=== PATIENT | male | born 1970 | race Caucasian/White ===

== ENCOUNTER 2017-02-19 07:32 | Observation (INO) ==
--- NOTE | 2017-02-19 07:55 | Emergency Department Note ---
Disposition Clinical Impression: Cholecystitis Disposition: Admitted As Inpatient Condition: Fair Time of Disposition: 11:14 Abdominal Pain HPI - General Chief Complaint: ED Abdominal Pain Stated Complaint: "Gall Stones" Time Seen by Provider: 02/19/17 07:41 Source: patient Mode of arrival: ambulatory Limitations: no limitations Nursing Notes Reviewed: Yes Vital Signs Reviewed: Yes - History of Present Illness HPI Narrative: Nontoxic-appearing 47-year-old male is brought to the emergency department for further evaluation of right upper quadrant pain. The patient was sent to this facility from [facility] emergency department. Here, he underwent laboratory testing as well as a CT of the abdomen and pelvis without contrast. CT shows cholelithiasis with pericholecystic inflammation. The impression of this CT result is cholelithiasis and acute cholecystitis. According to [facility] emergency departments records, this patient's case was discussed with Dr. Osorio, general surgeon. Dr. Osorio requested that the patient be transferred here for an ultrasound of the gallbladder, with disposition to follow. The patient states that his abdominal pain began approximately 1-1/2 days ago and gradually worsened since. He complains of being nauseated but denies any vomiting. He denies any fever, chills, constipation, or diarrhea. He denies any urinary symptoms or bloody stools. He denies any recent foreign travel or known sick contacts. The patient was given IV Zofran and morphine prior to discharge to this emergency Department. At the time of my exam, he rates his pain a 1 out of 10 on a 10 point scale. He states the IV morphine has helped tremendously. Pt Subjective Complaint: abdominal pain Onset (ago): day(s) (1.5) Consistency: Worsening Location: RUQ Pain Severity: mild Pain Scale: 1 Quality: cramping Radiation: none Migration to: no migration Improves with: nothing Worsens with: nothing Associated symptoms: Reports: nausea. Denies: vomiting, diarrhea, fever, chills , constipation, dysuria, hematemesis, hematochezia, melena, hematuria Treatments prior to arrival: other - Related Data Home Medications Medication Instructions Recorded Confirmed No Known Home Drugs 02/19/17 02/19/17 Allergies Allergy/AdvReac Type Severity Reaction Status Date / Time infliximab [From Remicade] Allergy Difficulty Verified 02/19/17 07:39 Breathing All systems ED: reviewed and negative except as stated. Constitutional: Denies: fever, chills, weakness, weight change Eyes: Denies: eye pain, eye discharge, vision change ENT ED: Denies: ear pain, throat pain, dental pain, hearing loss, epistaxis, congestion, dysphagia Cardiovascular: Denies: chest pain, palpitations, dyspnea on exertion, edema, syncope Respiratory: Denies: cough, dyspnea, wheezes, hemoptysis, stridor Gastrointestinal: Reports: as per HPI, abdominal pain, nausea. Denies: vomiting , diarrhea, constipation, hematemesis, melena, hematochezia Genitourinary: Denies: urgency, dysuria, frequency, hematuria Musculoskeletal: Denies: back pain, neck pain, arthralgia, myalgia Integumentary: Denies: rash, abrasion, lesions Neurological: Denies: headache, weakness, numbness, paresthesias, confusion, abnormal gait, vertigo Psychiatric: Denies: anxiety, depression, suicidal thoughts, homicidal thoughts , auditory hallucinations, visual hallucinations Endocrine: Denies: fatigue Hematological/Lymphatic: Denies: easy bleeding, easy bruising Allergic/Immunologic: Denies: facial swelling, urticaria Abdominal Pain PMH - Past Medical History Medical history: Reports: COPD, other Male Surgical History: Reports: no surgical history Psychiatric history: Reports: no psych history - Social History Smoking status: Current every day smoker Alcohol use: Reports: none Drug use: Reports: none Physical Exam - General Limitations: no limitations General appearance: alert, in no apparent distress - Head Head exam: atraumatic, normocephalic, normal inspection - Eye Eye exam: Present: normal appearance, PERRL, EOMI. Absent: nystagmus - ENT ENT exam: mucous membranes moist - Neck Neck exam: Present: normal inspection, full ROM, trachea midline - Chest Chest inspection: Present: normal inspection, symmetric chest wall rise - Respiratory Respiratory exam: Present: normal lung sounds bilaterally. Absent: respiratory distress, wheezes, stridor, accessory muscle use, prolonged expiratory phase - Cardiovascular Cardiovascular exam: Present: regular rate, normal rhythm, normal heart sounds - Abdominal Exam Abdominal exam: Present: soft, tenderness, normal bowel sounds, Weeks's sign. Absent: Non-Tender, distention, guarding, rebound, rigidity, Rovsing's sign, tenderness at McBurney's Point Abdominal tenderness: Present: RUQ, moderate - Extremities Exam Extremities exam: Present: normal inspection, full ROM. Absent: tenderness, pedal edema - Neurological Exam Neurological exam: Present: alert, oriented X3 - Psychiatric Psychiatric exam: Present: normal affect, normal mood - Skin Skin exam: Present: warm, dry, intact, normal color Course Course Narrative: 1110: Dr. Osorio has in the patient in the emergency department. It has been concluded that the patient is not a surgical candidate at this time, as he is on Remicade. Dr. Osorio states that she will admit the patient to her services for further observation and treatment. - Consultations Consultation #1: I spoke with Dr. Osorio, surgery resourcing consultant. Dr. Osorio states that she will see the patient here in the Emergency Dept. Time: 09:03 Vital Signs Temperature 97.6 F 02/19/17 07:34 Pulse Rate 85 02/19/17 07:34 Respiratory Rate 16 02/19/17 07:34 Blood Pressure 132/87 02/19/17 07:34 O2 Sat by Pulse Oximetry 97 02/19/17 07:34 Temperature 98.0 F 02/19/17 14:10 Pulse Rate 67 02/19/17 14:10 Respiratory Rate 15 02/19/17 14:10 Blood Pressure 110/78 02/19/17 14:10 O2 Sat by Pulse Oximetry 97 02/19/17 07:34 Oxygen Delivery Oxygen Delivery Room Air Abdominal Pain - Medical Records Medical records reviewed: Yes I reviewed the patient's medical records. - Lab Data Lab results reviewed: Yes I reviewed the patient's lab results. - Radiology Data Radiology results reviewed: Yes I reviewed the patient's radiology results. Gallbladder Ultrasound 02/19/17 07:46 IMPRESSION: Cholelithiasis. Abnormal findings of the gallbladder are suspicious for acute or chronic cholecystitis. Correlation with HIDA scan may be beneficial. Nonobstructive renal calculi in the right kidney. No right hydronephrosis. D/ / Ramon Russell MD / Ramon Russell MD Interpreting Provider: Ramon Russell MD Attestation Statement - Attestation Attestation: I examined this patient and my medical decision-making was reviewed with the MEDIA PROMOTER/PA/Advanced Practice Nurse/Resident Physician. I agree with the documented findings, disposition and treatment plan as described except to the extent set forth below. Patient to ED requesting ultrasound. As a transfer from [facility]. Accepted by surgery for A gallbladder ultrasound to confirm his CT findings. Patient with upper abdominal tenderness on exam. Plan. Ultrasound discussed with surgery. Patient is not a surgical candidate secondary to his Remicade. Will be admitted for percutaneous draining.
[2017-02-19] MEDS ORDERED: *HR* HYDROmorphone (PF) 1 MG/ML SYRINGE IVP PRN (11:15)
[2017-02-19] MEDS ORDERED: *HR* Promethazine 25 MG/ML VIAL IVP PRN (11:15)
[2017-02-19] MEDS ORDERED: Naloxone 0.4 MG/ML INJ IVP PRN (11:15)
[2017-02-19] MEDS ORDERED: Ondansetron 4 MG/2 ML VIAL IVP PRN (11:15)
[2017-02-19] MEDS ORDERED: *HR* Metoprolol 5 MG/5 ML VIAL IVP PRN (11:15)
[2017-02-19] MEDS ORDERED: 0.9 % Sodium Chloride 1,000 ML IVC SCH (11:15)
--- NOTE | 2017-02-19 11:23 | General Surg History&Physical ---
Date of Encounter: 02/19/17 Time of Encounter: 11:20 Assessment and Plan (1) Acute cholecystitis Current Visit: Yes Status: Acute The assessment and plan as outlined above was discussed with the patient and/or family members who expressed understanding and agreement. All questions were answered. Discussed with patient his imaging and labs and PE findings he has acute cholecystitis. Due to his recent remicade administration it isnt appropriate to take him to surgery but to wait 6 weeks. Will consult IR to place percutaneous cholecystostomy tube. Abx prn pain control prn antiemetics GI/dvt prophylaxis npo ivf (2) Ankylosing spondylitis Current Visit: Yes Status: Chronic The assessment and plan as outlined above was discussed with the patient and/or family members who expressed understanding and agreement. All questions were answered. patients last dose of remicade was two weeks ago and it was his second dose, according to GI their recommendation is that surgery be held for 6 weeks. Qualifiers: Ankylosing spondylitis location: unspecified site of spine Qualified Code(s ): M45.9 - Ankylosing spondylitis of unspecified sites in spine (3) COPD (chronic obstructive pulmonary disease) Current Visit: Yes Status: Chronic The assessment and plan as outlined above was discussed with the patient and/or family members who expressed understanding and agreement. All questions were answered. pulmonary toilet, IS, prn aerosols Qualifiers: COPD type: unspecified COPD Qualified Code(s): J44.9 - Chronic obstructive pulmonary disease, unspecified History of Present Illness Chief complaint: abdominal pain HPI: Mr. Davenport is a 47 year old male who began having RUQ pain stabbing, which began yesterday. The pain doesnt radiate. Patient is obviously uncomfortable. She has nausea without emesis. No diarrhea. No fevers, chills or night sweats. Hasnt eaten anything since yesterday. He has ankylosing spondylitis and 2 weeks ago received his second dose of remicade and had a reaction to this and was admitted to the hospital for SOB, pt has COPD at baseline and isnt on home O2. He went to [facility] ED last night and CT was done showing gallbladder wall thickening with likely some pericholecystic fluid. LFT's and wbc wnl. Past Med Surg Social Fam HX - Past Medical History Source: patient Medical history: COPD, other (ankylosing spondylitis) Psychiatric history: no psych history - Past Surgical History Surgical History: no surgical history, non-contributory - Social History Smoking Status: Current every day smoker Smokeless Tobacco Status: No Alcohol use: none Drug use: none Current living situation: Home - Family History Grandmother History Unknown: Yes Medications and Allergies No Known Home Drugs 02/19/17 [History] Allergies infliximab [From Remicade] Allergy (Verified 02/19/17 07:39) Difficulty Breathing Review of Systems All systems PM: reviewed and no additional remarkable complaints except as stated All systems PM: A 10-system review of systems was performed and is negative for pertinent findings except as documented above in the HPI. General Surgery Exam Initial Vital Signs Temp Pulse Resp BP Pulse Ox 97.6 F 85 16 132/87 97 02/19/17 07:34 02/19/17 07:34 02/19/17 07:34 02/19/17 07:34 02/19/17 07:34 - General physical appearance well developed, well nourished, no distress, moderate pain - Eyes PERRL, normal ocular movement - ENT normal mucosa, normocephalic - Neck trachea midline - Respiratory normal expansion, normal respiratory effort, clear to auscultation - Cardiovascular Cardiovascular exam: Present: RRR - Abdomen Abdomen general surgery: Present: bowel sounds present, soft, tender Abdominal Tenderness: Present: RUQ - Integumentary Integumentary general surgery: Present: warm and dry, no abnormal pigmentation - Neurologic Present: CN 2-12 grossly intact - Musculoskeletal Present: normal posture - Psychiatric Psychiatric general surgery: Present: A&Ox3, speech is normal Results - Labs labs from [facility] Reviewed - Imaging CT scan - abdomen: report reviewed, image reviewed CT scan - pelvis: report reviewed, image reviewed US - abdomen: report reviewed
[2017-02-19 11:47] LABS: INR 1.2; Prothrombin Time 12.6 Seconds (9.4-12.1)
[2017-02-19] MEDS ORDERED: 0.9 % Sodium Chloride 500 ML ONE (12:49)
[2017-02-19] MEDS ORDERED: *HR* FentaNYL (PF) 100 MCG/2 ML VIAL ONE (12:49)
[2017-02-19] MEDS ORDERED: *HR* Midazolam HCl 2 MG/2 ML VIAL ONE (12:49)
[2017-02-19] MEDS ORDERED: *HR* FentaNYL (PF) 100 MCG/2 ML VIAL IVP PRN (12:53)
[2017-02-19] MEDS ORDERED: *HR* Midazolam HCl 2 MG/2 ML VIAL IVP PRN (12:54)
[2017-02-19] MEDS ORDERED: *HR* OxyCODONE/APAP 5/325 TABLET PO PRN (13:10)
[2017-02-19] MEDS: cefOXitin 2,000 MG in D5% in Water (Mini-Bag+) 100 ML IVPB SCH (17:45)
[2017-02-20] MEDS: cefOXitin 2,000 MG in D5% in Water (Mini-Bag+) 100 ML IVPB SCH ×2 (00:34→08:52)
[2017-02-20 06:37] LABS: Basophils % 0.4 %; Eosinophils # 0.4 K/mcL (0.0-0.6); Eosinophils % 3.6 %; Hemoglobin 13.1 g/dL (12.9-16.9); Immature Granulocytes % 0.5 % (0-4); Lymphocytes # 2.7 K/mcL (0.6-4.6); Lymphocytes % 27.6 %; Mean Corpuscular HGB Conc 31.2 g/dL (31.6-35.5); Mean Corpuscular Hemoglobin 25.2 pg (28.0-33.3); Mean Corpuscular Volume 80.9 fL (83.0-100.0); Mean Platelet Volume 9.9 fL (9.4-12.4); Monocytes # 0.7 K/mcL (0.0-1.3); Monocytes % 7.4 %; Neutrophils # 5.9 K/mcL (1.6-8.9); Platelet Count 333 K/mcL (140-400); Red Blood Count 5.19 M/mcL (4.19-5.50); Red Cell Distribution Width 15.9 % (11.5-14.5); Segmented Neutrophils % 60.5 %
[2017-02-20 06:53] LABS: Alanine Aminotransferase 61 Units/L (0-55); Albumin 3.2 g/dL (3.5-5.0); Albumin/Globulin Ratio 0.7 (1.1-2.2); Alkaline Phosphatase 112 Units/L (38-126); Aspartate Amino Transferase 46 Units/L (5-34); BUN/Creatinine Ratio 11 (6-26); Bilirubin,Direct 0.3 mg/dL (0.0-0.5); Bilirubin,Indirect 0.7 mg/dL (0.0-1.2); Blood Urea Nitrogen 10 mg/dL (8-26); Calcium 9.4 mg/dL (8.6-10.8); Carbon Dioxide 26 mEq/L (19-29); Chloride 105 mEq/L (98-109); Globulin 4.8 g/dL (2.4-3.5); Glucose 90 mg/dL (70-99); Osmolality,Calculated 287 (280-300); Sodium 139 mEq/L (136-145); eGFR For African Americans > 60 (> 60); eGFR For Non-African Americans > 60 (> 60)
[2017-02-20] MEDS ORDERED: Pantoprazole 40 MG VIAL IVP SCH (09:00)
[2017-02-20] MEDS ORDERED: Lidocaine 1% 20 ML MDV INFILT ONE (09:30)
--- NOTE | 2017-02-20 09:37 | General Surgery Progress Note ---
<GersonClaudette Keshav - Last Filed: 02/20/17 09:45> Date of Encounter: 02/20/17 Time of Encounter: 09:30 - Assessment and Plan (1) Acute cholecystitis Current Visit: Yes Status: Acute NPO for possible Cholecystostomy tube placement today- plan to repeat CT to see if gallbladder has filled and appropriate for drain placement IR consulted and aware of the plan IV antibiotics- Mefoxin IV fluids Supportive care/pain control Plan for interval cholecystectomy in 6 weeks (due to recent Remicade treatment 2 weeks ago) IS every 1 hours while awake PPI daily (2) Ankylosing spondylitis Current Visit: Yes Status: Chronic Received most recent Remicade treatment 2 weeks ago Plan for interval cholecystectomy in 6 weeks Qualifiers: Ankylosing spondylitis location: unspecified site of spine Qualified Code(s ): M45.9 - Ankylosing spondylitis of unspecified sites in spine (3) COPD (chronic obstructive pulmonary disease) Current Visit: Yes Status: Chronic Incentive spirometer every 1 hour while awake Duonebs prn Pulmonary toilet Qualifiers: COPD type: unspecified COPD Qualified Code(s): J44.9 - Chronic obstructive pulmonary disease, unspecified (4) DVT prophylaxis Current Visit: Yes Status: Acute Ambulate hallways TID Subjective Patient reports: no new complaints, feels better, still having pain, pain is less, voiding w/o difficulty, afebrile Objective Vital Signs - Last 8 Hours Temp Pulse Resp BP Pulse Ox 02/20/17 08:27 98.1 F 75 18 123/80 96 02/20/17 04:37 98.1 F 90 18 133/71 98 Intake and Output 02/19/17 02/20/17 02/20/17 23:59 07:59 15:59 Intake Total 528 / 528 100 / 100 Output Total 400 / 400 300 / 300 0 / 0 Balance 128 / 128 -200 / -200 0 / 0 Intake: IV Fluids 288 / 288 100 / 100 0.9 % Sodium Chloride 1, 188 / 188 000 ML @ 50 mls/hr IVC . Q20H [facility] Rx#:[id number] Mefoxin 2,000 MG In 100 / 100 100 / 100 Dextrose 5% (Minibag+) 100 ML 100 ML @ 200 mls/ hr IVPB Q8HR [facility] Rx#: [id number] Oral 240 / 240 0 / 0 Output: Urine 400 / 400 300 / 300 0 / 0 Other: Meal Dinner Percent of Meal Consumed 0% Weight 89.811 kg Blood Glucose* 95 Patient Weight 02/20/17 23:59 Weight 89.811 kg - General physical appearance well developed, well nourished, no distress - Eyes normal ocular movement - ENT normal mucosa, atraumatic, normocephalic - Neck Neck exam: trachea midline - Respiratory normal respiratory effort, clear to auscultation - Cardiovascular Cardiovascular exam: Present: RRR - Abdomen Abdomen: Present: bowel sounds present, soft, tender (improved) Abdominal Tenderness: epigastic, RUQ - Neurologic CN 2-12 grossly intact - Psychiatric oriented to time, oriented to person, oriented to place, speech is normal, memory intact - Labs 02/20/17 06:00 02/20/17 06:00 Diabetes panel 02/20/17 Range/Units 06:00 Sodium 139 (136-145) mEq/L Potassium 4.0 (3.5-4.5) mEq/L Chloride 105 (98-109) mEq/L Carbon Dioxide 26 (19-29) mEq/L BUN 10 (8-26) mg/dL Creatinine 0.91 (0.72-1.25) mg/dL Glucose 90 (70-99) mg/dL Calcium 9.4 (8.6-10.8) mg/dL AST 46 H (5-34) Units/L ALT 61 H (0-55) Units/L Alkaline Phosphatase 112 (38-126) Units/L Albumin 3.2 L (3.5-5.0) g/dL Calcium panel 02/20/17 Range/Units 06:00 Calcium 9.4 (8.6-10.8) mg/dL Albumin 3.2 L (3.5-5.0) g/dL Pituitary panel 02/20/17 Range/Units 06:00 Sodium 139 (136-145) mEq/L Potassium 4.0 (3.5-4.5) mEq/L Chloride 105 (98-109) mEq/L Carbon Dioxide 26 (19-29) mEq/L BUN 10 (8-26) mg/dL Creatinine 0.91 (0.72-1.25) mg/dL Glucose 90 (70-99) mg/dL Calcium 9.4 (8.6-10.8) mg/dL Adrenal panel 02/20/17 Range/Units 06:00 Sodium 139 (136-145) mEq/L Potassium 4.0 (3.5-4.5) mEq/L Chloride 105 (98-109) mEq/L Carbon Dioxide 26 (19-29) mEq/L BUN 10 (8-26) mg/dL Creatinine 0.91 (0.72-1.25) mg/dL Glucose 90 (70-99) mg/dL Calcium 9.4 (8.6-10.8) mg/dL Total Bilirubin 1.0 (0.2-1.2) mg/dL AST 46 H (5-34) Units/L ALT 61 H (0-55) Units/L Alkaline Phosphatase 112 (38-126) Units/L Albumin 3.2 L (3.5-5.0) g/dL Consult Discharge Plan - Plan Referrals: Jovita Miller MD [Primary Care Provider] - - Attending Attestation I examined this patient and my medical decision-making was reviewed with the GEOLOGY PROFESSOR/PA/Advanced Practice Nurse/Resident Physician. I agree with the documented findings, disposition and treatment plan as described except to the extent set forth below. <Rhonda Osorio - Last Filed: 02/20/17 15:36> Date of Encounter: 02/20/17 Time of Encounter: 15:30 - Assessment and Plan (1) Acute cholecystitis Current Visit: Yes Status: Acute IR unable to place drain due to contracted nature of gallbladder without adequate lumen for target patients pain significantly better today will trial regular low fat diet and if no increase pain ok dc and followup with me in office in 1-2 weeks and plan outpatient cholecystectomy in 6 weeks due to recent remicade (2) Ankylosing spondylitis Current Visit: Yes Status: Chronic Qualifiers: Ankylosing spondylitis location: unspecified site of spine Qualified Code(s ): M45.9 - Ankylosing spondylitis of unspecified sites in spine (3) COPD (chronic obstructive pulmonary disease) Current Visit: Yes Status: Chronic Qualifiers: COPD type: unspecified COPD Qualified Code(s): J44.9 - Chronic obstructive pulmonary disease, unspecified Subjective Patient reports: feels better, still having pain, pain is less, voiding w/o difficulty, afebrile Objective Vital Signs - Last 8 Hours Temp Pulse Resp BP Pulse Ox 02/20/17 12:40 97.7 F 71 16 115/80 96 02/20/17 08:27 98.1 F 75 18 123/80 96 Intake and Output 02/19/17 02/20/17 02/20/17 23:59 07:59 15:59 Intake Total 528 / 528 100 / 100 100 / 100 Output Total 400 / 400 300 / 300 0 / 0 Balance 128 / 128 -200 / -200 100 / 100 Intake: IV Fluids 288 / 288 100 / 100 100 / 100 0.9 % Sodium Chloride 1, 188 / 188 000 ML @ 50 mls/hr IVC . Q20H [facility] Rx#:[id number] Mefoxin 2,000 MG In 100 / 100 100 / 100 100 / 100 Dextrose 5% (Minibag+) 100 ML 100 ML @ 200 mls/ hr IVPB Q8HR [facility] Rx#: [id number] Oral 240 / 240 0 / 0 Output: Urine 400 / 400 300 / 300 0 / 0 Other: Meal Dinner NPO Percent of Meal Consumed 0% Weight 89.811 kg Blood Glucose* 95 85 Patient Weight 02/20/17 23:59 Weight 89.811 kg - General physical appearance well developed, well nourished, no distress - Eyes normal ocular movement - ENT normal mucosa, normocephalic - Neck Neck exam: trachea midline - Respiratory normal respiratory effort, clear to auscultation - Cardiovascular Cardiovascular exam: Present: RRR - Abdomen Abdomen: Present: bowel sounds present, soft, tender. Absent: guarding, rebound Abdominal Tenderness: RUQ - Integumentary no rash, no growths - Neurologic CN 2-12 grossly intact - Musculoskeletal normal posture - Psychiatric oriented to time, oriented to person, memory intact - Labs 02/20/17 06:00 02/20/17 06:00 Diabetes panel 02/20/17 Range/Units 06:00 Sodium 139 (136-145) mEq/L Potassium 4.0 (3.5-4.5) mEq/L Chloride 105 (98-109) mEq/L Carbon Dioxide 26 (19-29) mEq/L BUN 10 (8-26) mg/dL Creatinine 0.91 (0.72-1.25) mg/dL Glucose 90 (70-99) mg/dL Calcium 9.4 (8.6-10.8) mg/dL AST 46 H (5-34) Units/L ALT 61 H (0-55) Units/L Alkaline Phosphatase 112 (38-126) Units/L Albumin 3.2 L (3.5-5.0) g/dL Calcium panel 02/20/17 Range/Units 06:00 Calcium 9.4 (8.6-10.8) mg/dL Albumin 3.2 L (3.5-5.0) g/dL Pituitary panel 02/20/17 Range/Units 06:00 Sodium 139 (136-145) mEq/L Potassium 4.0 (3.5-4.5) mEq/L Chloride 105 (98-109) mEq/L Carbon Dioxide 26 (19-29) mEq/L BUN 10 (8-26) mg/dL Creatinine 0.91 (0.72-1.25) mg/dL Glucose 90 (70-99) mg/dL Calcium 9.4 (8.6-10.8) mg/dL Adrenal panel 02/20/17 Range/Units 06:00 Sodium 139 (136-145) mEq/L Potassium 4.0 (3.5-4.5) mEq/L Chloride 105 (98-109) mEq/L Carbon Dioxide 26 (19-29) mEq/L BUN 10 (8-26) mg/dL Creatinine 0.91 (0.72-1.25) mg/dL Glucose 90 (70-99) mg/dL Calcium 9.4 (8.6-10.8) mg/dL Total Bilirubin 1.0 (0.2-1.2) mg/dL AST 46 H (5-34) Units/L ALT 61 H (0-55) Units/L Alkaline Phosphatase 112 (38-126) Units/L Albumin 3.2 L (3.5-5.0) g/dL - Attending Attestation I examined this patient and my medical decision-making was reviewed with the GEOLOGY PROFESSOR/PA/Advanced Practice Nurse/Resident Physician. I agree with the documented findings, disposition and treatment plan as described except to the extent set forth below.
[2017-02-20 12:40] VITALS: BP 115/80
--- NOTE | 2017-02-20 15:44 | Discharge Summary ---
Date of Encounter: 02/20/17 Time of Encounter: 15:30 - Discharge Diagnosis (1) Acute cholecystitis Priority: Primary Status: Acute (2) Ankylosing spondylitis Priority: Secondary Status: Chronic Qualifiers: Ankylosing spondylitis location: unspecified site of spine Qualified Code(s ): M45.9 - Ankylosing spondylitis of unspecified sites in spine (3) COPD (chronic obstructive pulmonary disease) Priority: Secondary Status: Chronic Qualifiers: COPD type: unspecified COPD Qualified Code(s): J44.9 - Chronic obstructive pulmonary disease, unspecified - Discharge Medications Home Medications: No Known Home Drugs 02/19/17 [History] Allergies/Adverse Reactions: Allergies infliximab [From Remicade] Allergy (Verified 02/19/17 07:39) Difficulty Breathing General Surgery Exam Initial Vital Signs Temp Pulse Resp BP Pulse Ox 97.6 F 85 16 132/87 97 02/19/17 07:34 02/19/17 07:34 02/19/17 07:34 02/19/17 07:34 02/19/17 07:34 - General physical appearance well nourished, no distress - Eyes normal ocular movement - ENT normal mucosa, normocephalic - Neck trachea midline - Respiratory normal respiratory effort - Cardiovascular Cardiovascular exam: Present: RRR - Abdomen Abdomen general surgery: Present: bowel sounds present, soft, tender (minimal RUQ). Absent: guarding, rebound - Integumentary Integumentary general surgery: Present: no abnormal pigmentation. Absent: diaphoresis - Neurologic Present: CN 2-12 grossly intact - Musculoskeletal Present: normal gait - Psychiatric Psychiatric general surgery: Present: A&Ox3 Date of admission: 02/19/17 11:24 Primary care physician: Jovita Miller Discharging clinician: Rhonda Osorio Anticipated date of discharge: 02/20/17 - Patient Status Disposition: Home, Self-Care Condition: Fair Overall status at discharge: patient is progressing back to baseline - Discharge Instructions Instructions: Low Fat Diet (DC) Follow Up With: Jovita Miller MD [Primary Care Provider] - Rhonda Osorio MD [Partnered Physician] - (2 weeks, discuss interval cholecystectomy) - Diet and Activity Activity: increase activity as tolerated Diet: low fat, low cholesterol - Hospital Course Hospital course: Mr. Davenport is a 47 year old male who was admitted with acute cholecystitis. He unfortunately 2 weeks ago received his second dose of remicade. We attempted a percutaneous cholecystostomy tube placement but IR was unable to place due to inadequate lumen of the gallbladder. Patient feels better and is only "sore" currently. He was started on a diet and if tolerated allowed to dc home with instructions for low fat diet. - Time Spent with Patient Total time spent providing and/or coordinating discharge services: Labs on day of discharge: Labs from last 24 hours 02/20/17 02/20/17 02/20/17 06:00 06:00 05:27 WBC 9.8 RBC 5.19 Hgb 13.1 Hct 42.0 MCV 80.9 L MCH 25.2 L MCHC 31.2 L RDW 15.9 H Plt Count 333 MPV 9.9 Immature Gran % 0.5 Seg Neutrophils % 60.5 Lymphocytes % 27.6 Monocytes % 7.4 Eosinophils % 3.6 Basophils % 0.4 Neutrophils # 5.9 Lymphocytes # 2.7 Monocytes # 0.7 Eosinophils # 0.4 Basophils # 0.0 Sodium 139 Potassium 4.0 Chloride 105 Carbon Dioxide 26 BUN 10 Creatinine 0.91 Est GFR ( Amer) > 60 Est GFR (Non-Af Amer) > 60 BUN/Creatinine Ratio 11 Glucose 90 POC Glucose 95 H Calculated Osmolality 287 Calcium 9.4 Total Bilirubin 1.0 Direct Bilirubin 0.3 Indirect Bilirubin 0.7 AST 46 H ALT 61 H Alkaline Phosphatase 112 Serum Total Protein 8.0 Albumin 3.2 L Globulin 4.8 H Albumin/Globulin Ratio 0.7 L - Impressions ITS Impressions Abdomen CT 02/20/17 11:15 IMPRESSION: Cholelithiasis. The gallbladder wall is contracted surrounding the stones, with no identifiable access point to allow for placement of a cholecystostomy tube. The area of concerning pericholecystic inflammatory change seen on the initial CT is less prominent on this exam. D/ / Clarence Do MD / Clarence Do MD Interpreting Provider: Clarence Do MD
--- NOTE | 2017-02-21 08:23 | Electrocardiograph Report ---
[place] [address] Test Date: 2017-02-19 Pat Name: Roman Davenport Department: 105 Room: 3A23 Gender: M [employer]: DANIEL : 1970 Requested By: Any See Order Number: [id number] Reading MD: Yemi Pastor MD Measurements Intervals [place] Rate: 72 P: 72 ND: 129 QRS: 63 QRSD: 97 T: 55 QT: 381 QTc: 405 Interpretive Statements SINUS RHYTHM Electronically Signed On 02-21-2017 8:22:01 EDT by Yemi Pastor MD
== END 2017-02-20 18:18 | disposition home or self-care (01) ==
LOC: EMEROO 07:32 → 3ANU 07:32
PROVIDERS: ADMIT Surgery; ATTEND Surgery